=== PATIENT | female | born 1975 | race Caucasian/White ===

== ENCOUNTER 2024-01-23 13:50 | Emergency (ER) | payer BC, SELFPAY ==
[2024-01-23 13:54] VITALS: BP 137/93; PULSE 82; RESP 18; TEMP 36.8; O2SAT 98; BMI 28.7
--- NOTE | 2024-01-23 14:18 | ED.GENADULT ---
HPI - General Adult General Chief complaint: Headache/Migraine Stated complaint: Migraine Time Seen by Provider: 01/23/24 13:52 History of Present Illness HPI narrative: Patient is a 48-year-old female who has had longstanding migraine headaches, starting in grade school. She has treated them successfully with Toradol, Reglan, Benadryl in the past. Reglan tends to get her little agitated but Benadryl when she takes it in the past according to chart records helps her head and she does fine with that. She had a headache couple days ago she took a leave and got better and then it recurred again this morning where she had visual changes she typically gets a little bit of tingling in her fingers and the unilateral headache visual field cut which is consistent with her prior high headaches. She has not required ER treatment for headaches for quite some time. No fever, chills, nuchal rigidity. No focal neurologic changes. Related Data Home Medications Medication Instructions Recorded Confirmed levonorgestrel 0.15 mg-ethinyl PO 07/18/23 07/18/23 estradiol 30 mcg tablets,3 mos pack(91) rizatriptan 10 mg disintegrating mg PO 07/18/23 07/18/23 tablet zonisamide 100 mg capsule 100 mg PO BID 07/18/23 07/18/23 Allergies Allergy/AdvReac Type Severity Reaction Status Date / Time Penicillins Allergy Verified 01/23/24 13:54 Review of Systems Status of ROS: Reports: 6 or more systems reviewed and unremarkable except as noted in History and below [facility] Medical History Cellulitis of nose ?J34.0 - Abscess, furuncle and carbuncle of nose (ICD-10) Exam Narrative: Exam Narrative: Objective: Patient is in mild distress and at illness awake and alert notice no cyanosis Vital signs show afebrile, otherwise within normal limits HEENT shows no facial asymmetry Neck is supple Upper lower extremities denies weakness or pain. Const: Vital Signs, click to edit/add: Vital Signs - 24 hr 01/23/24 13:54 Temperature 98.2 F Pulse Rate [Pulse Oximeter] 82 Respiratory Rate 18 Blood Pressure [Ri ght Forearm] 137/93 H Pulse Oximetry 98 Oxygen Delivery Me thod Room Air Course Vital Signs Vital signs: Initial Vital Signs Temperature 98.2 F 01/23/24 13:54 Temperature Source Temporal Artery Scan 01/23/24 13:54 Pulse Rate 82 01/23/24 13:54 Pulse Rhythm Regular 01/23/24 13:54 Respiratory Rate 18 01/23/24 13:54 Blood Pressure 137/93 H 01/23/24 13:54 Blood Pressure Mean 107 H 01/23/24 13:54 Blood Pressure Position Supine 01/23/24 13:54 Pulse Oximetry 98 01/23/24 13:54 Oxygen Delivery Method Room Air 01/23/24 13:54 Vital Signs Temperature 98.2 F 01/23/24 13:54 Pulse Rate 82 01/23/24 13:54 Respiratory Rate 18 01/23/24 13:54 Blood Pressure 137/93 H 01/23/24 13:54 Pulse Oximetry 98 01/23/24 13:54 Oxygen Delivery Method Room Air 01/23/24 13:54 Temperature 98.2 F 01/23/24 13:54 Pulse Rate 82 01/23/24 13:54 Respiratory Rate 18 01/23/24 13:54 Blood Pressure 137/93 H 01/23/24 13:54 Pulse Oximetry 98 01/23/24 13:54 Oxygen Delivery Method Room Air 01/23/24 13:54 Medications Administered Medications: Discontinued Medications Generic Name Dose Route Start Last Admin Trade Name Freq PRN Reason Stop Dose Admin Diphenhydramine HCl 50 mg 01/23/24 14:13 01/23/24 14:39 Diphenhydramine 50 Mg/Ml Inj IVP 01/23/24 14:14 50 mg ONCE ONE Administration Sodium Chloride 1,000 mls @ 6,000 mls/hr 01/23/24 14:15 01/23/24 14:57 0.9 % Sodium Chloride 1000 Ml IV 01/23/24 14:24 Infused .Q10M JOSE MANUEL Infusion Metoclopramide HCl 10 mg/ 102 mls @ 306 mls/hr 01/23/24 14:13 01/23/24 14:39 Sodium Chloride IV 01/23/24 14:14 306 mls/hr ONCE ONE Administration Ketorolac Tromethamine 30 mg 01/23/24 14:13 01/23/24 14:45 Ketorolac 30 Mg/Ml Inj IVP 01/23/24 14:14 30 mg ONCE ONE Administration Medical Decision Making MDM Narrative Medical decision making narrative: 48 year white female with a history of longstanding migraine headaches with a classic migraine for her. I think will try the Toradol, Shannon Reglan, Benadryl, IV fluid again. She does have a milk wagon driver her daughter home and I think will allow to go home after completion of her medication treatment sleep recommended observation, follow-up with primary care return to ED if problems or concerns. At this point this is fairly classic for her migraines and I do not think imaging is necessary at this time given her low lung nature of headaches and the nature of this headache Discharge Plan Discharge Clinical Impression: Migraine Patient Disposition: Home w/ Parent or Adult Condition: Improved Additional Instructions: Rest, fluids, may use home medications, would not use any Triptan for the next 12 hours. Follow-up with primary care as needed, return to ED problems concerns or recurrence. Activity Level: Light activity Discharge Diet: Regular Prescriptions: No Action levonorgestrel-ethinyl estrad 0.15 mg-30 mcg (91) tablets,dose pack,3 month PO zonisamide 100 mg capsule 100 mg PO BID rizatriptan 10 mg tablet,disintegrating PO Follow Up/Referrals: Provider,Not a Local [Primary Care Provider] - Stand Alone Forms: [employer] Info Instructions
[2024-01-23] MEDS: 0.9 % SODIUM CHLORIDE 1000 ml 1,000 ML 6000 ML IV (14:33)
[2024-01-23] MEDS: METOCLOPRAMIDE HCL 10 MG in 0.9 % SODIUM CHLORIDE 100 ml 100 ML 306 MG IV (14:39)
[2024-01-23] MEDS: diphenhydrAMINE 50 MG/ML inj IVP (14:39)
[2024-01-23] MEDS: KETOROLAC 30 MG/ML inj IVP (14:45)
--- NOTE | 2024-01-23 15:25 | ED.NURSE ---
at discharge pt informed nurse she was feeling very anxious, nurse assisted with calming breathing techniques, after breathing with pt, pt informed nurse that she was feeling a little better. nurse informed pt that I had discharge information, and asked pt if they felt they could go home. pt stated Yes I am good to go home nurse review DC instructions with pt and daughter, pt verbalized understanding. no questions. pt ambulated to lobby with daughter.
== END 2024-01-23 15:13 | disposition home or self-care (01) ==
LOC: ED 14:24
PROVIDERS: Emergency Provider Family Medicine
DX: G43.909 Migraine, unspecified, not intractable, without status migrainosus (principal)
CPT/HCPCS: 96374; 96375; 99284; J1200; J1885; J2765; J7030

== ENCOUNTER 2024-03-24 18:00 | Outpatient (CLI) | payer BC, SELFPAY | END 2024-03-24 18:01 | disposition home or self-care (01) | LOC: NFLDUCREF 18:10 | PROVIDERS: PCP Nurse Practitioner Family; Visit Provider Family Medicine | DX: L02.421 Furuncle of right axilla (principal); B95.62 Methicillin resistant Staphylococcus aureus infection as the cause of diseases classified elsewhere | CPT/HCPCS: 87070; 87186 ==

== ENCOUNTER 2024-08-04 07:54 | Outpatient (CLI) | payer BC, SELFPAY ==
--- NOTE | 2024-08-04 08:15 | CRLHL7_ITS ---
For Patients: As a result of the Century Cures Act, medical imaging exams and procedure reports are released immediately into your electronic medical record. You may view this report before your referring provider. If you have questions, please contact your health care provider. Technique: Double-contrast upper GI performed after the uneventful administration of effervescent crystals and thick barium followed by thin barium. Fluoroscopy time 1 minute 45 seconds. Indication: Gastroesophageal reflux disease Comparison: None. Findings: Swallowing mechanism: Normal. Esophageal motility: Normal. Gastroesophageal reflux: Trace. Hernia: None. Esophagus, stomach and duodenal bulb mucosa: Normal mucosa. No stricture or mass. Impression: Trace spontaneous reflux. Remainder unremarkable. Dictated by Alberto Fontenot MD @ 08/04/2024 11:47:46 AM (Electronically Signed)
== END 2024-08-04 07:55 | disposition home or self-care (01) ==
PROVIDERS: Visit Provider Internal Medicine Gastroenterology
DX: K21.9 Gastro-esophageal reflux disease without esophagitis (principal); R07.0 Pain in throat
CPT/HCPCS: 74246